=== PATIENT | male | born 1975 | race Caucasian/White ===

== ENCOUNTER 2016-11-28 16:59 | Emergency (ER) | payer OTHER ==
[2016-11-28 17:03] VITALS: BMI 29.0
--- NOTE | 2016-11-28 19:54 | PDOC ---
History of Present Illness - General History Source: Patient Exam Limitations: No Limitations - History of Present Illness Initial Comments: 11/28/16 20:11 Patient is a 41 year old male with no pmhx who presents to the ED with abdominal pain for 8 days. Patient states that the pain is localized to the epigastric area and radiates across to the LUQ and the back, 8/10 in severity, constant, cramping in nature. Patient states that today the pain is the worse out of the 8 days. He states that he was seen in another hospital and was diagnosed with gastritis and was dc home with malax. He denies any relief from the medication. He denies fever, chills, nausea or vomiting. SH: non smoker, no alcohol or IVDU. <Melia Nolasco - Last Filed: 11/28/16 20:11> <Aayush Jose - Last Filed: 11/29/16 02:29> - General Chief Complaint: Pain Stated Complaint: abd PAIN, ACUTE Time Seen by Provider: 11/28/16 19:33 Past History <Melia Nolasco - Last Filed: 11/28/16 20:11> - Past Medical History Other medical history: none - Psycho/Social/Smoking Cessation Hx Anxiety: No Suicidal Ideation: No Smoking History: Never smoked Have you smoked in the past 12 months: No Information on smoking cessation initiated: No Hx Alcohol Use: No Drug/Substance Use Hx: No Substance Use Type: None <Aayush Jose - Last Filed: 11/29/16 02:29> - Past Medical History Allergies/Adverse Reactions: Allergies Allergy/AdvReac Type Severity Reaction Status Date / Time No Known Allergies Allergy Verified 11/28/16 17:00 Home Medications: Ambulatory Orders NK [No Known Home Medication] 11/28/16 Review of Systems - Review of Systems Able to Perform ROS?: Yes Comments:: 11/28/16 20:12 CONSTITUTIONAL: No fever, no chills, no fatigue EYES: No visual changes ENT: No ear pain, no sore throat CARDIOVASCULAR: No chest pain, no palpitations RESPIRATORY: No cough, no SOB GI: +abdominal pain. no nausea, no vomiting, no constipation, no diarrhea GENITOURINARY: No dysuria, no frequency, no hematuria MUSKULOSKELETAL: No backpain, no joint pain, no myalgias SKIN: No rash NEURO: No headache <Melia Nolasco - Last Filed: 11/28/16 20:11> *Physical Exam - Vital Signs Last Vital Signs Temp Pulse Resp BP Pulse Ox 97.9 F 72 18 137/93 100 11/28/16 17:01 11/28/16 17:01 11/28/16 17:01 11/28/16 17:01 11/28/16 17:01 - Physical Exam Comments: 11/28/16 20:12 CONSTITUTIONAL: Well-appearing; well-nourished; in no apparent distress HEAD: Normocephalic; atraumatic EYES: PERRL; EOM intact ENMT: External appears normal; normal oropharynx NECK: Supple; nontender; no cervical lymphadenopathy CARD: Normal S1, S2; no murmurs, rubs, or gallops RESP: Normal chest excursion with respiration; breath sounds clear and equal bilaterally; no wheezes, rhonchi, or rales ABD: (+)epigastic tenderness, LLQ tenderness on palpation. Soft, non-distended; no palpable organomegaly, no palpable hernias EXT: Normal ROM in all four extremities; non-tender to palpation; distal pulses intact SKIN: Warm, dry, no rash NEURO: No focal neurological deficiencies. <Melia Nolasco - Last Filed: 11/28/16 20:11> - Vital Signs Last Vital Signs Temp Pulse Resp BP Pulse Ox 97.9 F 72 18 137/93 100 11/28/16 17:01 11/28/16 17:01 11/28/16 17:01 11/28/16 17:01 11/28/16 17:01 <Aayush Jose - Last Filed: 11/29/16 02:29> ED Treatment Course - LABORATORY CBC & Chemistry Diagram: 11/28/16 20:10 11/28/16 20:10 <Aayush Jose - Last Filed: 11/29/16 02:29> Medical Decision Making - Medical Decision Making 11/28/16 21:40 Patient is well-appearing 41-year-old male who presents with atraumatic left upper quadrant and epigastric discomfort radiating to the back. Patient is afebrile and hemodynamically stable. Differential diagnoses includes gastritis versus peptic ulcer disease versus nephrolithiasis. We'll administer Pepcid and Maalox. Urinalysis reveals 10 RBCs per high-power field. Will obtain a noncontrast CT of abdomen and pelvis to rule out kidney stones. Will reassess. Likely discharge. 11/29/16 02:27 Patient reassessed. Patient is resting comfortably. CT of abdomen and pelvis reveals a partially obstructing distal ureteral stone on the left measuring 3 mm with mild hydronephrosis. There is no evidence of pyelonephritis. Patient tolerates by mouth. Will discharge. <Aayush Jose - Last Filed: 11/29/16 02:29> *DC/Admit/Observation/Transfer - Attestations Scribe Attestion: 11/28/16 20:13 Documentation prepared by FRANCO Lyn, acting as medical office asst for Aayush Jose MD. <Melia Nolasco - Last Filed: 11/28/16 20:11> - Attestations Physician Attestion: 11/28/16 21:40 The documentation was prepared by the scribe under my direct supervision. I have reviewed the documentation which correctly represents the findings, medical decision-making and critical action taken by me. <Aayush Jose - Last Filed: 11/29/16 02:29> Diagnosis at time of Disposition: Calculus of left kidney - Discharge Dispostion Disposition: HOME Condition at time of disposition: Stable - Referrals Referrals: Jason Lou MD [Staff Physician] - - Patient Instructions Printed Discharge Instructions: DI for Kidney Stones Additional Instructions: Please take Pepcid-20 mg orally twice daily. Take ibuprofen-600 mg every 6 hours as needed for pain. Follow-up with urology. Return immediately for severe pain, vomiting, fever. Print Language: [place]
[2016-11-28] MEDS ORDERED: RANITIDINE HCL 150 MG TABLET (FP) PO ONE (20:05)
[2016-11-28] MEDS ORDERED: MAG HYDROX/AL HYDROX/SIMETH 30 ML UNIT-DOSE CUP PO ONE (20:05)
[2016-11-28 20:14] LABS: URINE APPEARANCE CLEAR; URINE BILIRUBIN NEGATIVE (NEGATIVE); URINE BLOOD 2+ (NEGATIVE); URINE COLOR STRAW; URINE GLUCOSE (UA) NEGATIVE (NEGATIVE); URINE KETONE NEGATIVE (NEGATIVE); URINE LEUK ESTERASE NEGATIVE (NEGATIVE); URINE NITRITE NEGATIVE (NEGATIVE); URINE PROTEIN NEGATIVE (NEGATIVE); URINE UROBILINOGEN NEGATIVE mg/dL (0.2-1.0)
[2016-11-28] MEDS ORDERED: RANITIDINE HCL 150 MG TABLET (FP) ONE (20:14)
[2016-11-28] MEDS ORDERED: MAG HYDROX/AL HYDROX/SIMETH 30 ML UNIT-DOSE CUP ONE (20:15)
[2016-11-28 20:39] LABS: BASOPHIL 0.4 % (0-2.0); EOSINOPHIL 1.1 % (0-4.5); MCH 31.2 pg (25.7-33.7); MCHC 34.1 g/dl (32.0-35.9); MEAN CELL VOLUME 91.5 fl (80-96); MEAN PLT VOLUME 8.5 fl (7.5-11.1); NEUTROPHILS 71.5 % (42.8-82.8); PLATELET COUNT 329 K/MM3 (134-434); RDW 12.5 % (11.9-15.9)
[2016-11-28 20:49] LABS: URINE MUCUS RARE; URINE RBC 10 /hpf (0-3); URINE WBC <1 /hpf (3-5)
[2016-11-28 21:04] LABS: ALBUMIN 4.3 g/dl (3.4-5.0); ALK PHOS 113 U/L (45-117); ANION GAP 9 (8-16); BILIRUBIN,TOTAL 0.3 mg/dL (0.2-1.0); CALCIUM 10.2 mg/dL (8.5-10.1); CO2 29 mmol/L (21-32); CREATININE 1.3 mg/dL (0.7-1.3); GLUCOSE,RANDOM 98 mg/dL (74-106); SGOT/AST 29 U/L (15-37); SGPT/ALT 33 U/L (12-78); TOT PROT 7.7 g/dl (6.4-8.2)
[2016-11-29 03:22] VITALS: BP 118/79; PULSE 68; TEMP 97.8
[2016-11-29] MEDS ORDERED: KETOROLAC TROMETHAMINE 30 MG/1 ML VIAL IVPUSH ONE (03:27)
[2016-11-29] MEDS ORDERED: KETOROLAC TROMETHAMINE 30 MG/1 ML VIAL ONE (03:28)
== END 2016-11-29 03:48 | disposition home or self-care (01) ==
LOC: JER 16:59
PROC: 3E033GC Introduction of Other Therapeutic Substance into Peripheral Vein, Percutaneous Approach (ICD-10-PCS; principal; 2016-11-28)
DX: N20.0 Calculus of kidney (principal)
CPT/HCPCS: 36415; 74176; 80053; 81003; 81015; 83690; 85025; 87086; 99282-25

== ENCOUNTER 2018-09-17 10:31 | Emergency (ER) | payer SELFPAY, OTHER | END 2018-09-17 11:50 | disposition home or self-care (01) | LOC: FER 10:31 ==